=== PATIENT | female | born 1975 | race Hispanic/Latino ===

== ENCOUNTER 2024-10-04 11:01 | Emergency (ER) | payer SELFPAY ==
[~2024-10-04] VITALS: Ht 149.9 cm; Wt 63.0 kg
[2024-10-04 11:41] LABS: BASOPHILS # (AUTO) 0.03 K/uL (0.00-0.20); BASOPHILS % (AUTO) 0.4 % (0.0-5.0); EOSINOPHILS # (AUTO) 0.13 K/uL (0.00-0.70); EOSINOPHILS % (AUTO) 1.7 % (0.0-8.0); IMMATURE GRANULOCYTE ABSOLUTE 0.02 K/uL (0-1); LYMPHOCYTES # (AUTO) 2.3 K/uL (1.0-4.8); LYMPHOCYTES % (AUTO) 28.9 % (21.0-51.0); MEAN CORPUSCULAR HEMOGLOBIN 27.3 pg (27.0-33.0); MEAN CORPUSCULAR HGB CONC 33.1 g/dL (32.0-36.0); MEAN CORPUSCULAR VOLUME 82.5 fL (79-99); MONOCYTES # (AUTO) 0.4 K/uL (0.1-1.0); MONOCYTES % (AUTO) 5.1 % (3.0-13.0); NEUTROPHILS % (AUTO) 63.6 % (40.0-77.0); PLATELET COUNT (AUTO) 316 K/uL (130-400); RED BLOOD CELL COUNT(AUTO) 4.73 MIL/uL (4.00-5.50); RED CELL DISTRIBUTION WIDTH 17.2 % (11.0-15.5); WHITE BLOOD COUNT (AUTO) 7.8 K/uL (4.8-10.8)
[2024-10-04 11:51] LABS: INR <= 0.93 (0.85-1.15); PROTHROMBIN TIME 10.1 SEC (9.6-11.6)
[2024-10-04 11:53] LABS: PARTIAL THROMBOPLASTIN TIME 24.9 SEC (26.3-35.5)
[2024-10-04 11:53] LABS: APPEARANCE,URINE CLEAR (CLEAR); BILIRUBIN,URINE NEGATIVE (NEGATIVE); COLOR,URINE COLORLESS (YELLOW); GLUCOSE, URINE (UA) NEGATIVE (NEGATIVE); KETONES,URINE NEGATIVE (NEGATIVE); LEUKOCYTE ESTERASE ,URINE NEGATIVE Leu/uL (NEGATIVE); NITRATE,URINE NEGATIVE (NEGATIVE); OCCULT BLOOD,URINE NEGATIVE (NEGATIVE); PROTEIN,URINE NEGATIVE (NEGATIVE); UROBILINOGEN,URINE 0.2 mg/dL (0.2-1.0)
[2024-10-04] MEDS: morPHINE 2 MG SYG IVP ONE (12:03)
[2024-10-04] MEDS: morPHINE 2 MG SYG ONE (12:04)
[2024-10-04 12:09] LABS: ADD UA MICROSCOPIC NO
[2024-10-04 12:11] LABS: B-TYPE NATRIURETIC PEPTIDE 27 pg/mL (0-100)
[2024-10-04 12:20] LABS: CREATININE 0.7 mg/dL (0.5-1.0); POTASSIUM 3.6 mmol/L (3.5-5.1)
--- NOTE | 2024-10-04 12:33 | HMCIMG ---
CHEST 1VW CLINICAL HISTORY: sob COMPARISON: None TECHNIQUE: Single view of the chest was obtained. FINDINGS: Lungs are clear. The cardiac size and mediastinum are unremarkable. The bony structures are within normal limits. IMPRESSION: No acute cardiopulmonary process identified.
--- NOTE | 2024-10-04 13:13 | ERN ---
ED Note History of Present Illness Stated Complaint: CHEST PAIN Chief Complaint: Chest Pain Time Seen by MD: 11:07 Dictation: Patient is a 49-year-old female who presented to the emergency department brought by EMS due to elevated blood pressure, anxiety, headache and dizziness. Patient states that she has been in different hospital including [facility], [facility] as though with the her PCP due to elevated blood pressure and anxiety, she is pending to see her psychiatrist. Allergies: Coded Allergies: Penicillins (Unverified Allergy, Unknown, 10/04/24) Home Meds Active Scripts Hydralazine HCl (Hydralazine HCl) 50 Mg Tablet, 1 TAB PO TID for 30 Days, #90 TAB 0 Refills Prov:ZEINAB KIM MD 10/04/24 Hydroxyzine HCl (Atarax) 25 Mg Tab, 1 CAP PO TID for anxiety for 10 Days, #30 CAP 0 Refills Prov:ZEINAB KIM MD 10/04/24 Past Medical History Past Medical History: Anxiety, Depression, Hypertension Surgical History: Cholecystectomy Surgical History Other: RIGHT OVARY CYST REMOVAL SURGERY Review of System Dictation NEGATIVE EXCEPT PER HPI Constitutional: Anxious Eyes: Negative for injury, pain,redness, and discharge ENT: Negative for injury,pain or swelling Cardiovascular: denies chest pain, palpitations, and edema Respiratory: Negative for shortness of breath, cough, and wheezing, Abdomen/GI: Negative for abdominal pain, nausea, vomiting, diarrhea, and constipation Back: Negative for injury and pain : Negative for injury, bleeding and discharge MS/Extremity: Negative for injury and deformity Skin: Negative for rash, and discoloration Neuro: Negative for headache, weakness, numbness, tingling, and seizure Psych: Negative for suicide ideation, homicidal ideation, and hallucinations Initial Vital Sign VS Vital Signs Date Time Temp Pulse Resp B/P (MAP) Pulse Ox O2 Delivery O2 Flow Rate FiO2 10/04/24 11:04 84 25 213/143 99 Room Air 0 10/04/24 11:17 98.8 21 Physical Exam Dictation General: awake, alert, NAD Head/Face: Normocephalic, atraumatic Eyes: PERRL, EOMI, vision at baseline ENT: oral cavity clear, TMs clear, no signs of infection Neck: Trachea midline, supple, no nuchal rigidity Cardiovascular: RRR, normal S1/S2, No MRGs, no JVD Respiratory: CTAB, no respiratory distress, No rales or wheezes Abdomen: Soft , no tender Skin: Warm, dry, normal turgor, no rash MS/Extremity: Pulses equal, no cyanosis, neurovascular intact, FROM Neuro: COAx4, GCS 15, strength 5/5, CN 2-12 intact, normal cerebellar exam, normal gait, Psych: Normal behavior, mood, and affect normal Results (Laboratory/Radiology) Laboratory/Radiology Laboratory Tests Test 10/04/24 11:25 10/04/24 11:39 White Blood Count 7.8 K/uL (4.8-10.8) Red Blood Count 4.73 MIL/uL (4.00-5.50) Hemoglobin 12.9 g/dL (12.0-16.0) Hematocrit 39.0 % (36-48) Mean Corpuscular Volume 82.5 fL (79-99) Mean Corpuscular Hemoglobin 27.3 pg (27.0-33.0) Mean Corpuscular Hemoglobin Concent 33.1 g/dL (32.0-36.0) Red Cell Distribution Width 17.2 % (11.0-15.5) H Platelet Count 316 K/uL (130-400) Mean Platelet Volume 9.1 fL (7.5-10.5) Immature Granulocyte % (Auto) 0.3 % (0-1) Neutrophils (%) (Auto) 63.6 % (40.0-77.0) Lymphocytes (%) (Auto) 28.9 % (21.0-51.0) Monocytes (%) (Auto) 5.1 % (3.0-13.0) Eosinophils (%) (Auto) 1.7 % (0.0-8.0) Basophils (%) (Auto) 0.4 % (0.0-5.0) Neutrophils # (Auto) 5.0 K/uL (1.8-7.7) Lymphocytes # (Auto) 2.3 K/uL (1.0-4.8) Monocytes # (Auto) 0.4 K/uL (0.1-1.0) Eosinophils # (Auto) 0.13 K/uL (0.00-0.70) Basophils # (Auto) 0.03 K/uL (0.00-0.20) Absolute Immature Granulocyte (auto 0.02 K/uL (0-1) Nucleated Red Blood Cells 0.0 % (0.0-0.19) Prothrombin Time 10.1 SEC (9.6-11.6) Prothromb Time International Ratio <= 0.93 (0.85-1.15) Activated Partial Thromboplast Time 24.9 SEC (26.3-35.5) L Sodium Level 141 mmol/L (136-145) Potassium Level 3.6 mmol/L (3.5-5.1) Chloride Level 104 mmol/L (101-111) Carbon Dioxide Level 26 mmol/L (21-32) Blood Urea Nitrogen 10 mg/dL (7-18) Creatinine 0.7 mg/dL (0.5-1.0) Glomerular Filtration Rate Calc 105 mL/min (>90) Random Glucose 110 mg/dL (70-105) H Total Calcium 9.3 mg/dL (8.5-10.1) Total Creatine Kinase 252 U/L (21-232) H Troponin I High Sensitivity 6.3 ng/L (4-50) B-Type Natriuretic Peptide 27 pg/mL (0-100) Urine Color COLORLESS (YELLOW) Urine Appearance CLEAR (CLEAR) Urine pH 7.0 (5.0-8.0) Urine Specific [place] 1.004 (1.001-1.031) Urine Protein NEGATIVE mg/dL (NEGATIVE) Urine Glucose (UA) NEGATIVE mg/dL (NEGATIVE) Urine Ketones NEGATIVE mg/dL (NEGATIVE) Urine Occult Blood NEGATIVE (NEGATIVE) Urine Nitrate NEGATIVE (NEGATIVE) Urine Bilirubin NEGATIVE mg/dL (NEGATIVE) Urine Urobilinogen 0.2 mg/dL (0.2-1.0) Urine Leukocyte Esterase NEGATIVE Timothy/uL ED Course ED Course Orders Procedure Category Date Status Time Initiate Chest Pain WES 10/04/24 In Process Procotol 11:27 12 Lead Ekg Tracing- EKG 10/04/24 Logged Technical 11:27 Cardiac Panel LAB 10/04/24 Complete 11:27 Cbc With Differential LAB 10/04/24 Complete 11:27 Basic Metabolic Panel LAB 10/04/24 Complete 11:27 B-Type Natriuretic LAB 10/04/24 Complete Peptide 11:27 Pt And Ptt LAB 10/04/24 Complete 11:27 Urinalysis Profile LAB 10/04/24 Complete 11:39 Chest 1vw RAD 10/04/24 Resulted 11:45 Morphine 2mg Syg PHA 10/04/24 Complete (Morphine 2mg Syg) 12:00 Morphine 2mg Syg PHA 10/04/24 Complete (Morphine 2mg Syg) 12:01 Alprazolam 1mg (Xanax PHA 10/04/24 Complete 1mg) 13:30 Hydralazine 25mg Tab PHA 10/04/24 In Process ([id number] Tab 13:30 Current Medications Medications (Trade) Dose Ordered Sig/Jose Route PRN Reason Start Time Stop Time Status Last Admin Dose Admin Alprazolam (XANax 1MG) 1 mg ONCE ONCE PO 10/04/24 13:30 10/04/24 13:31 DC 10/04/24 13:45 Hydralazine HCl ([id number] TAB) 50 mg ONCE PO 10/04/24 13:30 11/03/24 13:29 10/04/24 13:45 Morphine Sulfate (morPHINE 2MG SYG) 2 mg ONCE ONCE IVP 10/04/24 12:00 10/04/24 12:01 DC 10/04/24 12:03 Morphine Sulfate (morPHINE 2MG SYG) 2 mg STK-MED ONCE .ROUTE 10/04/24 12:01 10/04/24 12:02 DC Vital Signs Date Time Temp Pulse Resp B/P (MAP) Pulse Ox O2 Delivery O2 Flow Rate FiO2 10/04/24 12:37 78 14 163/97 96 Room Air* 0 21 10/04/24 11:17 98.8 95 20 209/127 99 Room Air* 0 21 10/04/24 11:04 84 25 213/143 99 Room Air 0 Medical Decision Making MDM 49-year-old female with a history of hypertension, anxiety, brought to the ER due to chest pain, elevated blood pressure, anxiety attack. She also was complaining of headache. Her blood pressure was elevated on arrival 213/103 Anxiety Chest pain Uncontrolled blood pressure Chest pain workup including x-ray of chest was performed and result was within normal limits. BP has been improving without prescribing antihypertensive. Anxiety medication ordered lorazepam 1 mg Plan is to add hydralazine to her BP home medication regimen Atarax will be prescribed for anxieties Hydralazine 50 mg ordered oral Patient to follow up with her PCP DX & DISP Disposition: Discharge Departure Impression: Primary Impression: Anxiety Additional Impressions: Chest pain, Hypertensive urgency Condition: Stable Scripts Hydralazine HCl (Hydralazine HCl) 50 Mg Tablet 1 TAB PO TID for 30 Days, #90 TAB 0 Refills Prov: ZEINAB KIM MD 10/04/24 Hydroxyzine HCl (Atarax) 25 Mg Tab 1 CAP PO TID for anxiety for 10 Days, #30 CAP 0 Refills Prov: ZEINAB KIM MD 10/04/24 Referrals: SELF,REFERRAL (PCP) ZEINAB KIM MD Oct 04, 2024 13:13
[2024-10-04] MEDS: ALPRAZolam 1 MG TAB PO ONE (13:45)
[2024-10-04] MEDS: hydrALAZine 25MG TABLET PO SCH (13:45)
[2024-10-04] MEDS ORDERED: HYDR50TA37 PO (14:09)
[2024-10-04] MEDS ORDERED: HYD25 PO (14:09)
[2024-10-04 14:36] VITALS: BP 130/80; PULSE 70; RESP 16; TEMP 98; O2SAT 97
--- NOTE | 2024-10-04 17:49 | EKG ---
[facility] Test Date: 2024-10-04 Test Time: 11:06:28 Pat Name: GUILLAUME TURCIOS Department: [facility] Room: Gender: F Neonatal Icu Coordinator: [id number] : 1975 Requested By: ZEINAB VACA Order Number: [id number] Reading MD: Theo Reynoso Measurements Intervals [place] Rate: 67 P: 34 [place]: 135 QRS: 8 QRSD: 86 T: 50 QT: 415 QTc: 437 Interpretive Statements Sinus rhythm Probable left atrial enlargement Left ventricular hypertrophy Anterior infarct, old No previous ECG available for comparison Electronically Signed On 10-05-2024 09:55:11 BAGGER MEAT by Theo Reynoso Please click the below link to view image of tracing.
== END 2024-10-04 14:35 | disposition home or self-care (01) ==
LOC: EDH 11:01
DX: F41.9 Anxiety disorder, unspecified (principal); R07.89 Other chest pain; I16.0 Hypertensive urgency; F32.A Depression, unspecified; Z79.899 Other long term (current) drug therapy; Z88.0 Allergy status to penicillin; Z90.49 Acquired absence of other specified parts of digestive tract
CPT/HCPCS: 99285; 96374; 71045; 82550; 84484; 80048; 83880; 85025; 85610; 85730; 81003; 36415; 93005; J2270